=== PATIENT | male | born 1975 | race Caucasian/White ===

== ENCOUNTER → 2016-04-20 | Outpatient (CLI) | payer BC ==
--- NOTE | 2016-04-20 17:28 | XR ---
EXAMINATION TYPE: XR chest 2V DATE OF EXAM: 04/20/2016 5:20 PM COMPARISON: NONE HISTORY: COPD and short of breath TECHNIQUE: Frontal and lateral views of the chest are obtained. FINDINGS: Heart and mediastinum are normal. Lungs are clear. Diaphragm is normal. Bony thorax is int act. IMPRESSION: Normal chest
== END | disposition home or self-care (01) ==
LOC: RADXRMAIN 16:58
PROVIDERS: ATTEND Physical Medicine & Rehabilitation
DX: M54.2 Cervicalgia (principal); R20.2 Paresthesia of skin
CPT/HCPCS: 71020

== ENCOUNTER 2017-03-05 22:41 | Inpatient (IN) | payer BC ==
[2017-03-05] MEDS ORDERED: HYDROmorphone 0.5 MG/0.5 ML SYRINGE IVP STA (23:00)
[2017-03-05] MEDS ORDERED: LORazepam 2 MG/ML INJ IV STA (23:00)
--- NOTE | 2017-03-05 23:04 | ED ---
General Adult HPI - General Chief complaint: Skin/Abscess/Foreign Body Stated complaint: Left foot pain Time Seen by Provider: 03/05/17 22:45 Source: patient, RN notes reviewed Mode of arrival: ambulatory Limitations: no limitations - History of Present Illness Initial comments: This is a 41-year-old male who presents emergency Department complaining of pain in his left foot over the first MTP joint. Patient states she had a bunion removed there by Dr. Tillman and a week ago he followed up with him and Dr. Tillman thought the area looked infected. Patient's been on Bactrim. Patient states since then the area is gotten more tender and he believes it is looking worse. Patient denies any fever. Patient denies any erythema on the foot was riding of the erythema up the foot. Patient denies any area of fluctuance. Patient denies hitting or having any other problems. - Related Data Home Medications Medication Instructions Recorded Confirmed HYDROcodone/APAP 5-325MG [[place] 1 tab PO Q4-6H PRN 03/05/17 03/05/17 5-325] Omeprazole [PriLOSEC] 20 mg PO AC-BID 03/05/17 03/05/17 Sulfamethox-Tmp 800-160Mg [Bactrim 1 tab PO Q12HR 03/05/17 03/05/17 DS 800-160 mg] Allergies Allergy/AdvReac Type Severity Reaction Status Date / Time aspirin Allergy Unknown Verified 03/05/17 23:01 Penicillins Allergy Rash/Hives Verified 03/05/17 23:01 Poultry Allergy Rash/Hives Verified 03/05/17 23:01 Review of Systems ROS Statement: Those systems with pertinent positive or pertinent negative responses have been documented in the HPI. ROS Other: All systems not noted in ROS Statement are negative. 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 Patient is nontoxic and well- hydrated and is in no acute distress. ENT: Neck is soft and supple. No significant lymphadenopathy is noted. Oropharynx is clear. Moist mucous membranes. Neck has full range of motion without eliciting any pain. EYES: The sclera were anicteric and conjunctiva were pink and moist. Extraocular movements were intact and pupils were equal round and reactive to light. Eyelids were unremarkable. PULMONARY: Unlabored respirations. Good breath sounds bilaterally. No audible rales rhonchi or wheezing was noted. CARDIOVASCULAR: There is a regular rate and rhythm without any murmurs gallops or rubs. ABDOMEN: Soft and nontender with normal bowel sounds. No palpable organomegaly was noted. There is no palpable pulsatile mass. SKIN: Skin is clear with no lesions or rashes and otherwise unremarkable. NEUROLOGIC: Patient is alert and oriented x3. Cranial nerves II through XII are grossly intact. Motor and sensory are also intact. Normal speech, volume and content. Symmetrical smile. MUSCULOSKELETAL: Normal extremities with adequate strength and full range of motion. No lower extremity swelling or edema. No calf tenderness. Patient has an incision at the left MTP joint and appears mildly erythematous there is no erythema beyond a centimeter from the incision there is no area of fluctuance. Patient has 2 other incisions one on his leg and one on the top of his foot neither of those areas appear to be erythematous or show any signs of infection. LYMPHATICS: No significant lymphadenopathy is noted PSYCHIATRIC: Normal psychiatric evaluation. Normal interpersonal interactions appears functionally intact in deals appropriately with others. No signs of depression. No signs of anxiety. Limitations: no limitations Course Vital Signs 03/05/17 22:43 Temperature 97.8 F Pulse Rate 98 Respiratory 18 Rate Blood Pressure 131/82 O2 Sat by Pulse 97 Oximetry Medical Decision Making - Medical Decision Making Patient did not have a white count however his lactic acid was 3.7 he was experiencing more pain and he believes that the foot was looking worse. I spoke with Karla Hall for Dr. Tillman and she agreed to admit the patient to see the patient in the morning. EKG shows normal sinus rhythm at 84 bpm AK interval is 144 QRS is 82 QT interval 374 QTC is 441. Patient's EKG shows no ST segment elevation or depression or T wave abnormalities are noted. - Lab Data Result diagrams: 03/05/17 23:22 03/05/17 23:22 Lab Results 03/05/17 03/05/17 03/05/17 Range/Units 23:22 23:22 23:22 WBC 6.3 (3.8-10.6) k/uL RBC 4.81 (4.30-5.90) m/uL Hgb 14.6 (13.0-17.5) gm/dL Hct 43.0 (39.0-53.0) % MCV 89.4 (80.0-100.0) fL MCH 30.3 (25.0-35.0) pg MCHC 33.9 (31.0-37.0) g/dL RDW 13.7 (11.5-15.5) % Plt Count 295 (150-450) k/uL Neutrophils % 43 % Lymphocytes % 44 % Monocytes % 6 % Eosinophils % 3 % Basophils % 1 % Neutrophils # 2.7 (1.3-7.7) k/uL Lymphocytes # 2.8 (1.0-4.8) k/uL Monocytes # 0.4 (0-1.0) k/uL Eosinophils # 0.2 (0-0.7) k/uL Basophils # 0.0 (0-0.2) k/uL Sodium 140 (137-145) mmol/L Potassium 4.0 (3.5-5.1) mmol/L Chloride 101 (98-107) mmol/L Carbon Dioxide 23 (22-30) mmol/L Anion Gap 16 mmol/L BUN 17 (9-20) mg/dL Creatinine 1.40 H (0.66-1.25) mg/dL Est GFR (MDRD) Af Amer >60 (>60 ml/min/1.73 sqM) Est GFR (MDRD) Non-Af 56 (>60 ml/min/1.73 sqM) Glucose 129 H (74-99) mg/dL Plasma Lactic Acid Keven 3.7 H* (0.7-2.0) mmol/L Calcium 10.1 (8.4-10.2) mg/dL Total Bilirubin 0.3 (0.2-1.3) mg/dL AST 24 (17-59) U/L ALT 43 (21-72) U/L Alkaline Phosphatase 79 (38-126) U/L Total Protein 7.9 (6.3-8.2) g/dL Albumin 4.7 (3.5-5.0) g/dL Urine Color Urine Appearance (Clear) Urine pH (5.0-8.0) Ur Specific [place] (1.001-1.035) Urine Protein (Negative) Urine Glucose (UA) (Negative) Urine Ketones (Negative) Urine Blood (Negative) Urine Nitrite (Negative) Urine Bilirubin (Negative) Urine Urobilinogen (<2.0) mg/dL Ur Leukocyte Esterase (Negative) Urine RBC (0-5) /hpf Urine WBC (0-5) /hpf Ur Squamous Epith Cells (0-4) /hpf Urine Mucus (None) /hpf 03/05/17 Range/Units 23:22 WBC (3.8-10.6) k/uL RBC (4.30-5.90) m/uL Hgb (13.0-17.5) gm/dL Hct (39.0-53.0) % MCV (80.0-100.0) fL MCH (25.0-35.0) pg MCHC (31.0-37.0) g/dL RDW (11.5-15.5) % Plt Count (150-450) k/uL Neutrophils % % Lymphocytes % % Monocytes % % Eosinophils % % Basophils % % Neutrophils # (1.3-7.7) k/uL Lymphocytes # (1.0-4.8) k/uL Monocytes # (0-1.0) k/uL Eosinophils # (0-0.7) k/uL Basophils # (0-0.2) k/uL Sodium (137-145) mmol/L Potassium (3.5-5.1) mmol/L Chloride (98-107) mmol/L Carbon Dioxide (22-30) mmol/L Anion Gap mmol/L BUN (9-20) mg/dL Creatinine (0.66-1.25) mg/dL Est GFR (MDRD) Af Amer (>60 ml/min/1.73 sqM) Est GFR (MDRD) Non-Af (>60 ml/min/1.73 sqM) Glucose (74-99) mg/dL Plasma Lactic Acid Keven (0.7-2.0) mmol/L Calcium (8.4-10.2) mg/dL Total Bilirubin (0.2-1.3) mg/dL AST (17-59) U/L ALT (21-72) U/L Alkaline Phosphatase (38-126) U/L Total Protein (6.3-8.2) g/dL Albumin (3.5-5.0) g/dL Urine Color Yellow Urine Appearance Clear (Clear) Urine pH 5.5 (5.0-8.0) Ur Specific [place] 1.034 (1.001-1.035) Urine Protein 1+ H (Negative) Urine Glucose (UA) Negative (Negative) Urine Ketones Negative (Negative) Urine Blood Negative (Negative) Urine Nitrite Negative (Negative) Urine Bilirubin Negative (Negative) Urine Urobilinogen 2.0 (<2.0) mg/dL Ur Leukocyte Esterase Negative (Negative) Urine RBC 2 (0-5) /hpf Urine WBC 2 (0-5) /hpf Ur Squamous Epith Cells <1 (0-4) /hpf Urine Mucus Rare H (None) /hpf Disposition Clinical Impression: Postoperative infection Disposition: ADMITTED IP TO THIS HOSP Referrals: Leno Watkins MD [Primary Care Provider] - 1-2 days Time of Disposition: 00:15
[2017-03-05] MEDS: SODIUM CHLORIDE 0.9% 500 ML IV SCH (23:21)
[2017-03-05 23:37] LABS: Appearance,Urine Clear (Clear); Basophils % (A) 1 %; Bilirubin,Urine Negative (Negative); Blood,Urine Negative (Negative); Color,Urine Yellow; Eosinophils # (A) 0.2 k/uL (0-0.7); Eosinophils % (A) 3 %; Glucose,Urine (UA) Negative (Negative); HGB 14.6 gm/dL (13.0-17.5); Ketones,Urine Negative (Negative); Leukocyte Esterase,Urine Negative (Negative); Lymphocytes # (A) 2.8 k/uL (1.0-4.8); Lymphocytes % (A) 44 %; MCH 30.3 pg (25.0-35.0); MCHC 33.9 g/dL (31.0-37.0); MCV 89.4 fL (80.0-100.0); Monocytes # (A) 0.4 k/uL (0-1.0); Monocytes % (A) 6 %; Mucus,Urine Rare /hpf; Neutrophils # (A) 2.7 k/uL (1.3-7.7); Neutrophils % (A) 43 %; Nitrite,Urine Negative (Negative); PH, Urine 5.5 (5.0-8.0); Platelet Count 295 k/uL (150-450); Protein,Urine 1+ (Negative); RBC 4.81 m/uL (4.30-5.90); RBC,Urine 2 /hpf (0-5); RDW 13.7 % (11.5-15.5); Specific Gravity,Urine 1.034 (1.001-1.035); Squamous Epithelial Cell,Urine <1 /hpf (0-4); WBC 6.3 k/uL (3.8-10.6); WBC,Urine 2 /hpf (0-5)
[2017-03-05 23:45] LABS: ALT 43 U/L (21-72); AST 24 U/L (17-59); Albumin 4.7 g/dL (3.5-5.0); Alkaline Phosphatase 79 U/L (38-126); Anion Gap 16 mmol/L; Blood Urea Nitrogen 17 mg/dL (9-20); Calcium 10.1 mg/dL (8.4-10.2); Carbon Dioxide 23 mmol/L (22-30); Chloride 101 mmol/L (98-107); Glucose 129 mg/dL (74-99); Sodium 140 mmol/L (137-145); Total Bilirubin 0.3 mg/dL (0.2-1.3); Total Protein 7.9 g/dL (6.3-8.2)
--- NOTE | 2017-03-05 23:56 | XR ---
EXAMINATION TYPE: XR foot complete LT DATE OF EXAM: 03/05/2017 COMPARISON: NONE HISTORY: Foot abscess TECHNIQUE: 3 views FINDINGS: There are multiple screws fixing the first tarsometatarsal joint. There is a screw fixing t he first and second cuneiform joint. There is a screw fixing the proximal first and second metatarsal s. I see no fracture nor dislocation. There is no evidence of focal bone destruction. There is appare nt small osteotomy on the first metatarsal head. IMPRESSION: Previous surgery. No evidence of osteomyelitis. No fracture.
[2017-03-06] MEDS ORDERED: SODIUM CHLORIDE 0.9% 1,000 ML IV ONE ×2 (00:13→00:16)
[2017-03-06] MEDS ORDERED: ONDANSETRON 4 MG/2 ML VIAL IVP PRN (00:17)
[2017-03-06] MEDS: ceFAZolin 1,000 MG in DEXTROSE/WATER 1 50ML.BAG IVPB SCH ×4 (00:46→18:24)
[2017-03-06 01:44] VITALS: BMI 21.6
[2017-03-06] MEDS: SODIUM CHLORIDE 0.9% 500 ML IV SCH (02:00)
[2017-03-06] MEDS: LORazepam 2 MG/ML INJ IV PRN ×2 (03:32→12:19)
[2017-03-06] MEDS: HYDROmorphone 0.5 MG/0.5 ML SYRINGE IVP PRN ×2 (09:05→21:18)
--- NOTE | 2017-03-06 12:26 | P.HPOR ---
History of Present Illness H&P Date: 03/06/17 Chief Complaint: Severe right foot pain This is a 41-year-old male admitted through the emergency department early this morning with severe left foot pain. 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 Tillman in January 2017. He was doing fairly well up until about a week ago when he noticed some increased pain to the left foot. He was seen in the office on Wednesday and his incisional area was slightly erythematous. The lower leg was covered in to her and dog hair at the time. He was placed on an antibiotic empirically. He presented to the emergency room yesterday with increased pain and significant anxiety. The patient states that he does drink regularly and has not had alcohol in about 10 days. He was extremely agitated and anxious. He is admitted for IV antibiotics and further evaluation. The patient's lactic acid in the emergency department was 3.6. 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, left bunionectomy with screws and lengthen muscle jan 2017 Past Anesthesia/Blood Transfusion Reactions: No Reported Reaction Past Psychological History: Anxiety Smoking Status: Never smoker Past Alcohol Use History: Occasional Past Drug Use History: None Reported - Past Family History Father Family Medical History: Pneumonia Medications and Allergies Home Medications Medication Instructions Recorded Confirmed Type HYDROcodone/APAP 5-325MG [[place] 1 tab PO Q4-6H PRN 03/05/17 03/05/17 History 5-325] Omeprazole [PriLOSEC] 20 mg PO AC-BID 03/05/17 03/05/17 History Sulfamethox-Tmp 800-160Mg [Bactrim 1 tab PO Q12HR 03/05/17 03/05/17 History DS 800-160 mg] SILVER sulfADIAZINE CREAM 1 applic TOPICAL BID 03/06/17 03/06/17 History [Silvadene Cream] Allergies Allergy/AdvReac Type Severity Reaction Status Date / Time aspirin Allergy Unknown Verified 03/06/17 01:17 Penicillins Allergy Rash/Hives Verified 03/06/17 01:17 Poultry Allergy Rash/Hives Verified 03/06/17 01:17 Physical Examination This is a 41-year-old male in no acute distress. He is a bit less agitated this morning. He is alert and oriented 3. Exam of the lower extremities reveals minimal erythema and swelling about the foot. There is some skin desquamation noted to the entire foot. His incisions are fairly well-healed. There is no calf swelling or tenderness noted. He has full ankle and knee motion without difficulty or pain. Neurovascular status to the lower extremity is intact. Results X-rays of the left foot show good position and alignment of hardware in the midfoot. No bony abnormality is noted. - Labs Labs: Abnormal Lab Results - Last 24 Hours (Table) 03/05/17 03/05/17 03/05/17 Range/Units 23:22 23:22 23:22 Creatinine 1.40 H (0.66-1.25) mg/dL Glucose 129 H (74-99) mg/dL Plasma Lactic Acid Keven 3.7 H* (0.7-2.0) mmol/L Urine Protein 1+ H (Negative) Urine Mucus Rare H (None) /hpf H & H 03/05/17 Range/Units 23:22 Hgb 14.6 (13.0-17.5) gm/dL Hct 43.0 (39.0-53.0) % Result Diagrams: 03/05/17 23:22 03/05/17 23:22 Assessment and Plan (1) Elevated lactic acid level Current Visit: Yes Status: Acute Code(s): R79.89 - OTHER SPECIFIED ABNORMAL FINDINGS OF BLOOD CHEMISTRY SNOMED Code(s): 6167011 (2) Status post foot surgery Current Visit: Yes Status: Acute Code(s): Z98.890 - OTHER SPECIFIED POSTPROCEDURAL STATES SNOMED Code(s): 865248798 Plan: The clinical and x-ray findings are discussed the patient. We will keep him on antibiotics for now. I do not suspect significant infection to the foot at this time. His white blood cell count is normal. The lactic acid level when repeated after bolus of fluids is 1.1. Patient is much more relaxed today with the Ativan. We have consulted medical management to evaluate for any possible medical issues related to the elevated lactic acid. I will plan discharged to home tomorrow if patient is stable.
--- NOTE | 2017-03-06 18:44 | XR ---
EXAMINATION TYPE: XR chest 1V portable DATE OF EXAM: 03/06/2017 Comparison: 08/04/2016 Clinical History: 41-year-old male with shortness of breath, evaluate for pneumonia Findings: The cardiomediastinal silhouette, aorta, and pulmonary vasculature are within normal limits. Lungs and pleural spaces are clear. Impression: No acute cardiopulmonary process.
--- NOTE | 2017-03-06 18:58 | CONS ---
CONSULTATION REASON FOR CONSULTATION: Advice regarding ETOH and possible DTs. HISTORY OF PRESENT ILLNESS: This 41-year-old gentleman with a past medical history of multiple medical problems including asthma, CPAP, DJD being followed by Dr. Watkins in the outpatient setting underwent left foot surgery with a bunion removal by Dr. Tillman I would week ago. The patient is complaining of left foot pain as well as not feeling well. The patient apparently was admitted and started on IV antibiotics. The area was covered with dog hair, according to the notes. There is no history of any fever, rigors. There is no history of headache, loss of consciousness. Patient apparently did not drink for the last 10 days. Patient extremely anxious at this time. No agitation is noted. No history of chest pain, palpitation at this time. PAST MEDICAL HISTORY: History of asthma, sleep apnea, DJD, anxiety. MEDICATIONS PRIOR TO ADMISSION: Include: 1.topically b.i.d. 2. [place] 5 mg p.r.n. 3. Bactrim DS 1 p.o. b.i.d. 4. Prilosec 20 mg daily. ALLERGIES: Are ASPIRIN, PENICILLIN, POULTRY. FAMILY HISTORY: History of pneumonia. SOCIAL HISTORY: History of alcohol. No history of smoking. REVIEW OF SYSTEMS: ENT: No diminished hearing, diminished vision. CARDIOVASCULAR: No angina, palpitations. RESPIRATORY: No cough or hemoptysis. GI: As mentioned earlier. : No dysuria. NERVOUS: No numbness or weakness. ALLERGY/IMMUNOLOGY: No asthma or hay fever. MUSCULOSKELETAL: As mentioned earlier. HEMATOLOGY/ONCOLOGY: No history of anemia. ENDOCRINE: No history of diabetes, hypothyroidism. CONSTITUTIONAL: As mentioned earlier. DERMATOLOGY: Negative. RHEUMATOLOGY: Negative. PSYCHIATRY: As mentioned earlier. PHYSICAL EXAMINATION: The patient alert and oriented x3. Pulse is 80, blood pressure 112/71, respirations 16, temperature 98.1, pulse ox 98% on room air. HEENT: Conjunctivae normal. Oral mucosa moist. NECK: No jugular venous distention. No thyroid enlargement. No carotid bruits. CARDIOVASCULAR: S1, S2 muffled. No S3. No S4. RESPIRATORY: Breath sounds diminished in the bases. A few scattered rhonchi. No crackles. ABDOMEN: Soft, nontender. LEGS: Status post surgery on the left foot. NERVOUS SYSTEM: Higher functions as mentioned earlier. Moves all 4 limbs. No focal deficits. LYMPHATIC: No lymphadenopathy in neck or axillae. SKIN: No ulcer, rash or bleeding. LABS: CBC within normal limits. Creatinine is 1.40. Plasma lactate 3.7. ASSESSMENT: 1. Possible dehydration, mild acute renal failure, prerenal acute tubular necrosis, present on admission because of possible diminished p.o. intake. 2. Increased plasma lactic acid, possibly secondary to dehydration. 3. Rule out cellulitis. 4. Rule out delirium tremens. 5. History of EtOH. 6. History of recent bunion surgery on the left foot. 7. History of sleep apnea. 8. History of asthma. RECOMMENDATIONS AND DISCUSSION: In this 41-year-old gentleman who presented with multiple complex medical issues , will monitor the patient closely, continue the current medical management and symptomatic treatment. I recommend continuing with current medications, follow cultures, IV antibiotics. I would also recommend IV fluids, multivitamin supplements, CIWA protocol for alcohol and DT precautions. DVT prophylaxis. We will follow the patient closely with you and Thank you, Dr. Tillman for letting us participate in the care of this patient. MMODL / IJN: [id number] / MTDDemond
[2017-03-06 19:11] LABS: ALT 34 U/L (21-72); AST 20 U/L (17-59); Albumin 3.8 g/dL (3.5-5.0); Alkaline Phosphatase 63 U/L (38-126); Anion Gap 8 mmol/L; Blood Urea Nitrogen 17 mg/dL (9-20); Calcium 9.7 mg/dL (8.4-10.2); Carbon Dioxide 25 mmol/L (22-30); Chloride 106 mmol/L (98-107); Glucose 107 mg/dL (74-99); Potassium 4.6 mmol/L (3.5-5.1); Sodium 139 mmol/L (137-145); Total Bilirubin 0.3 mg/dL (0.2-1.3); Total Protein 6.3 g/dL (6.3-8.2)
[2017-03-06] MEDS: FOLIC ACID 1 MG TAB PO SCH (21:18)
[2017-03-06] MEDS: PANTOPRAZOLE 40 MG TABLET PO SCH (21:18)
[2017-03-06] MEDS: SODIUM CHLORIDE 0.9% 1,000 ML IV SCH (21:19)
[2017-03-06] MEDS: MULTIVITAMINS, THERA 1 EACH TAB PO SCH (21:19)
[2017-03-06] MEDS: THIAMINE 100 MG TAB PO SCH (21:19)
[2017-03-06] MEDS: HEPARIN SODIUM,PORCINE 5,000 UNIT/ML 1 ML VIAL SQ SCH (21:21)
[2017-03-06] MEDS: cloNIDine HCL 0.1 MG TAB PO SCH (21:23)
[2017-03-07] MEDS: ceFAZolin 1,000 MG in DEXTROSE/WATER 1 50ML.BAG IVPB SCH ×5 (00:48→23:39)
[2017-03-07 01:23] VITALS: RESP 16
[2017-03-07] MEDS: SODIUM CHLORIDE 0.9% 1,000 ML IV SCH ×2 (06:11→20:14)
[2017-03-07 07:31] LABS: Basophils % (A) 1 %; Eosinophils # (A) 0.1 k/uL (0-0.7); Eosinophils % (A) 4 %; HCT 39.5 % (39.0-53.0); HGB 13.6 gm/dL (13.0-17.5); Lymphocytes # (A) 1.2 k/uL (1.0-4.8); Lymphocytes % (A) 36 %; MCH 30.5 pg (25.0-35.0); MCHC 34.4 g/dL (31.0-37.0); MCV 88.8 fL (80.0-100.0); Mean Platelet Volume 7.6; Monocytes # (A) 0.2 k/uL (0-1.0); Monocytes % (A) 7 %; Neutrophils # (A) 1.7 k/uL (1.3-7.7); Neutrophils % (A) 51 %; Platelet Count 223 k/uL (150-450); RBC 4.45 m/uL (4.30-5.90); WBC 3.3 k/uL (3.8-10.6)
[2017-03-07] MEDS: PANTOPRAZOLE 40 MG TABLET PO SCH (08:28)
[2017-03-07] MEDS: HEPARIN SODIUM,PORCINE 5,000 UNIT/ML 1 ML VIAL SQ SCH ×2 (08:29→20:06)
[2017-03-07] MEDS: HYDROmorphone 0.5 MG/0.5 ML SYRINGE IVP PRN ×3 (08:29→20:14)
[2017-03-07] MEDS: cloNIDine HCL 0.1 MG TAB PO SCH ×2 (08:30→20:14)
--- NOTE | 2017-03-07 10:59 | P.PN ---
Subjective Progress Note Date: 03/07/17 Principal diagnosis: Status post Modified Lapidus procedure with gastroc recession left foot. Cellulitis left foot. This is a 41-year-old male admitted with increased redness and swelling to his left foot. He is status post modified Lapidus procedure with gastroc recession of the left foot in January 2017. His pain is improved today. He has no new complaints or concerns today. Objective - Vital Signs Vital signs: Vital Signs Temp 97.4 F L 03/07/17 07:00 Pulse 95 03/07/17 07:00 Resp 16 03/07/17 07:00 BP 107/67 03/07/17 07:00 Pulse Ox 100 03/07/17 07:00 Intake & Output 03/06/17 03/07/17 03/07/17 18:59 06:59 18:59 Intake Total 1020 1075 Output Total 1925 550 Balance -905 525 Weight 58.967 kg Intake: IV 600 725 Sodium Chloride 0.9% 1, 600 675 000 ml @ 75 mls/hr IV . [id number] ONE Rx#:[id number] ceFAZolin 1,000 mg In 50 Dextrose/Water 1 50ml.bag @ 100 mls/hr IVPB Q6HR RODNEY Rx#:[id number] Oral 420 350 Output: Urine 1925 550 Other: Voiding Method Toilet Toilet Toilet # Voids 1 - Exam This is a pleasant 41-year-old male in no acute distress. He is alert and oriented 3. Exam of the left lower extremity reveals that his swelling and erythema are improved. He continues to have desquamation of the skin about the great toe. There are no open wounds noted. Neurovascular status to the lower extremity is intact. - Labs CBC & Chem 7: 03/07/17 06:57 03/06/17 18:34 Labs: Abnormal Lab Results - Last 24 Hours (Table) 03/06/17 03/07/17 Range/Units 18:34 06:57 WBC 3.3 L (3.8-10.6) k/uL Creatinine 1.37 H (0.66-1.25) mg/dL Glucose 107 H (74-99) mg/dL Microbiology - Last 24 Hours (Table) 03/05/17 23:22 Blood Culture - Final Blood 03/05/17 23:22 Urine Culture - Preliminary Urine,Voided Assessment and Plan (1) Elevated lactic acid level Current Visit: Yes Status: Acute Code(s): R79.89 - OTHER SPECIFIED ABNORMAL FINDINGS OF BLOOD CHEMISTRY SNOMED Code(s): 6269989 (2) Status post foot surgery Current Visit: Yes Status: Acute Code(s): Z98.890 - OTHER SPECIFIED POSTPROCEDURAL STATES SNOMED Code(s): 592494326 Plan: The clinical and x-ray findings are discussed the patient. His dressing is changed today and Silvadene cream applied. We will keep him on antibiotics for now. I do not suspect significant infection to the foot at this time. His white blood cell count is normal. The lactic acid level when repeated after bolus of fluids is 1.1. Patient is much more relaxed today with the Ativan. I will plan discharged to home tomorrow if patient is stable.
[2017-03-07] MEDS: MULTIVITAMINS, THERA 1 EACH TAB PO SCH (12:20)
[2017-03-07] MEDS: THIAMINE 100 MG TAB PO SCH (12:20)
[2017-03-07] MEDS: FOLIC ACID 1 MG TAB PO SCH (12:21)
[2017-03-07] MEDS: LORazepam 2 MG/ML INJ IV PRN (21:14)
[2017-03-08] MEDS: ceFAZolin 1,000 MG in DEXTROSE/WATER 1 50ML.BAG IVPB SCH ×2 (05:25→13:21)
[2017-03-08] MEDS: HYDROmorphone 0.5 MG/0.5 ML SYRINGE IVP PRN ×2 (05:27→08:53)
[2017-03-08] MEDS: PANTOPRAZOLE 40 MG TABLET PO SCH (08:53)
[2017-03-08] MEDS: cloNIDine HCL 0.1 MG TAB PO SCH (08:53)
[2017-03-08] MEDS ORDERED: HYDROcodone/APAP 7.5-325MG 1 EACH TAB PO PRN ×2 (09:24)
[2017-03-08] MEDS: HEPARIN SODIUM,PORCINE 5,000 UNIT/ML 1 ML VIAL SQ SCH (09:52)
[2017-03-08] MEDS: LORazepam 2 MG/ML INJ IV PRN (09:57)
[2017-03-08] MEDS: THIAMINE 100 MG TAB PO SCH (12:37)
[2017-03-08] MEDS: MULTIVITAMINS, THERA 1 EACH TAB PO SCH (12:37)
[2017-03-08] MEDS: SODIUM CHLORIDE 0.9% 1,000 ML IV SCH (12:37)
[2017-03-08] MEDS: FOLIC ACID 1 MG TAB PO SCH (12:37)
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
--- NOTE | 2017-03-08 15:02 | P.PN ---
Subjective Progress Note Date: 03/08/17 Principal diagnosis: Left foot cellulitis/infection, s/p modified lapidus procedure Patient is a 41-year-old male seen at bedside this am. He was admitted with increased redness and swelling to his left foot. He is status post modified Lapidus procedure with gastroc recession of the left foot in January [address] Tillman. He has been on IV antibiotics, He states that his pain is slightly improved today. He has no new complaints. He denies numbness, tingling , fever, chills, chest pain, SOB or calf pain. Objective - Vital Signs Vital signs: Vital Signs Temp 97.7 F 03/08/17 08:29 Pulse 82 03/08/17 08:52 Resp 16 03/08/17 08:29 BP 117/77 03/08/17 08:52 Pulse Ox 96 03/08/17 08:29 Intake & Output 03/07/17 03/08/17 03/08/17 18:59 06:59 18:59 Intake Total 925 600 Output Total 1850 Balance -925 600 Intake: IV 600 Sodium Chloride 0.9% 1, 600 000 ml @ 75 mls/hr IV . [id number] [facility] Rx#:[id number] Intake, IV Titration 925 Amount Sodium Chloride 0.9% 1, 825 000 ml @ 75 mls/hr IV . [id number] [facility] Rx#:[id number] ceFAZolin 1,000 mg In 100 Dextrose/Water 1 50ml.bag @ 100 mls/hr IVPB Q6HR [facility] Rx#:[id number] Output: Urine 1850 Other: Voiding Method Toilet Toilet Toilet Urinal # Voids 2 - Exam Exam of the left lower extremity reveals mild swelling and erythema at the great toe and distal foot. He continues to have desquamation of the skin about the great toe. There is areas of break down at the flexor creases of the great toe and 2nd toe. there is no fluid collection or fluctuance. There is no active bleeding or drainage. Neurovascular status to the lower extremity is intact. Calf is soft and nontender. - Constitutional General appearance: Present: no acute distress - Psychiatric Psychiatric: Present: A&O x's 3, appropriate affect, intact judgment & insight - Labs CBC & Chem 7: 03/07/17 06:57 01/20/18 18:34 Labs: Microbiology - Last 24 Hours (Table) 03/05/17 23:18 Blood Culture Gram Stain - Preliminary Blood Blood Culture - Preliminary Bacillus species Not Anthracis 03/06/17 22:54 Blood Culture - Preliminary Blood No Growth after 24 hours 03/06/17 22:35 Blood Culture - Preliminary Blood No Growth after 24 hours 03/05/17 23:22 Urine Culture - Final Urine,Voided Assessment and Plan (1) Postoperative infection Narrative/Plan: He will continue with wound care, elevation, pain management and IV antibiotics. There doesn't appear to be an area that requires surgical intervention. We will request consult from infectious disease for their recommendations. We will continue to monitor and make further recommendations as appropriate Current Visit: Yes Status: Acute Priority: Medium Code(s): T81.4XXA - INFECTION FOLLOWING A PROCEDURE, INITIAL ENCOUNTER SNOMED Code(s): 32526293 Time with Patient: Less than 30
[2017-03-08 15:06] VITALS: BP 99/63; PULSE 73; TEMP 98
--- NOTE | 2017-03-08 16:33 | PN ---
PROGRESS NOTE DATE OF SERVICE: 03/07/2017 This 41-year-old gentleman admitted with dehydration, renal failure and as well as infection, cellulitis, being closely monitored. The patient probably has ETOH withdrawal also. No chest pain. No palpitations. No fever. EXAM: Alert and oriented x3. The pulse is 100, blood pressure 130/72, respiration 20, temperature 97.1, pulse ox 98% on room air. HEENT: Conjunctivae normal. NECK: No jugular venous distention. CARDIOVASCULAR: S1, S2. RESPIRATORY: Breath sounds diminished in the bases. No rhonchi, no crackles. ABDOMEN: Soft, nontender. LEGS: No edema, no swelling. Cellulitis noted. NERVOUS SYSTEM: No focal deficits. LABS: WBC is 3.3. Creatinine is 1.37. ASSESSMENT: 1. Possible dehydration with mild acute renal failure with acute tubular necrosis, present on admission because of possible diminished p.o. intake and prerenal factors. 2. Increased plasma lactic acid, possibly secondary dehydration. 3. Possible EtOH withdrawal and early delirium tremens. 4. Cellulitis of the legs. 5. History of recent bunion surgery on the left foot. 6. Sleep apnea. 7. History of asthma. DISCUSSION AND RECOMMENDATIONS: I recommend to continue current management and symptomatic treatment. Will monitor the patient closely and continue with antibiotics. Continue with IV fluids. I would also recommend repeat labs also. MMODL / IJN: [id number] /
--- NOTE | 2017-03-08 16:39 | PN ---
PROGRESS NOTE DATE OF SERVICE: 03/08/2017. INTERVAL HISTORY: This 41-year-old gentleman admitted with cellulitis and renal failure is being closely monitored. No chest pain. No palpitations. No fever. EXAM: Alert and oriented x3. The pulse is 84, blood pressure 100/60, respirations 16, temperature 97.2, pulse ox 98% on room air. HEENT: Conjunctivae normal. Neck: No jugular venous distention. Cardiovascular: S1, S2. Respirations: Breath sounds diminished in the bases. No rhonchi. No crackles. Abdomen is soft, nontender. Legs: Cellulitis in the left foot. Central nervous system: No focal deficits. LAB STUDIES: At this time shows WBC 3.6, creatinine is noted. ASSESSMENT: 1. Possible dehydration with mild acute renal failure with prerenal acute tubular necrosis, present on admission because of diminished p.o. intake. 2. Increased plasma lactic acidosis secondary to dehydration. 3. Early alcohol withdrawal and delirium tremens. 4. Cellulitis. 5. Recent bunion surgery on the left foot. 6. Sleep apnea. 7. Asthma. RECOMMENDATIONS AND DISCUSSION: Recommend to continue current medications, management and symptomatic treatment. Otherwise, I would recommend repeat labs with the primary physician and also continue with Ativan p.r.n. Further recommendation to follow. MMODL / IJN: [id number] /
--- NOTE | 2017-03-08 18:52 | P.CON ---
Consult Note - . Consult date: 03/08/17 Assessment/Plan:: This is a 41-year-old male who underwent bunionectomy in January with Dr. Tillman. He had an appointment last Wednesday for which he was started on Bactrim. Patient states he has had increased tenderness in pains and the right foot at the area of surgery. He denies having any fever or chills. He came into [facility] emergency center for evaluation and was found to be afebrile with no leukocytosis. Creatinine was 1.37. Lactic acid initially 3.7 and repeat 1.1. Urinalysis was negative for urinary tract infection. Blood culture on March 05 is showing bacillus species not anthrax this and a gram-positive bacilli and a second specimen. Repeat blood cultures on March 06 are showing no growth at 24 hours and that is of 2 specimens. Patient has been on Kefzol. Patient is expecting to be discharged home today. He states his foot is still sore. No open drainage. He is eating okay with no change in his appetite.Please see the consult as dictated by DINING SERVER Mitchell Lorraine Harris. At this time this pleasant 41-year-old gentleman. The significant surgery and developed the difficulty with the cellulitis. The patient has pictures on his film show evidence of the redness that was present that is now generally resolved. Also has pictures of his x-rays show his hardware. He has very little understanding of his surgery., He is educated on the tendon lengthening to try to take weight off of the great toe so that the repair of that significant abnormality would last many years given his age of only 41. Seems to have some understanding. There is no evidence of any deep infection. Oral antimicrobial therapy will be utilized for home. Offloading as per the orthopedic surgeon. He has no evidence of sepsis. He is concerned about pain control with surgeon has offered him oral pain medication at discharge. The patient is evidence of the need for a multivitamin and he suggested take this. Patient also has a mildly elevated creatinine and it does appear he was taking anti-inflammatories at home. He is instructed not to take anti- inflammatories such as ibuprofen, Motrin, Advil or Aleve. He may take Tylenol and his [place] watching the total Tylenol dosage per day. We'll need to follow with his primary care physician regarding his elevated creatinine. I agree with evaluation assessment and plan as dictated by DINING SERVER Lorraine Kimberly.
--- NOTE | 2017-04-08 09:25 | P.DS ---
Providers Date of admission: 03/06/17 00:16 Expected date of discharge: 04/08/17 Attending physician: Fortunato Tillman Consults: 03/06/17 03:22 Consult Physician Routine Consulting Provider: Oumou Nj Consult Reason/Comments: medical managment Do you want consulting provider notified?: Yes, Notify in am 03/08/17 11:34 Consult Physician Routine Consulting Provider: Darrel Guzman Consult Reason/Comments: foot infection Do you want consulting provider notified?: Yes Primary care physician: Leno Watkins - Discharge Diagnosis(es) (1) Postoperative infection Patient is a 41-year-old male that was admitted with increased redness and swelling to his left foot. He is status post modified Lapidus procedure with gastroc recession of the left foot in January [address] Tillman. During his hospital course he received IV antibiotics, pain management and wound care. He did not require surgical intervention and his course was without complication. On day of discharge his pain and exam are improved. He has been cleared by infectious disease. He has no new complaints. He denies numbness, tingling, fever, chills, chest pain, SOB or calf pain or other. Status: Acute Priority: Medium Patient Condition at Discharge: Good Plan - Discharge Summary Discharge Rx Participant: Yes New Discharge Prescriptions: New Cefadroxil [Duricef] 500 mg PO Q12HR #20 tab HYDROcodone/APAP 7.5-325MG [[place] 7.5-325] 1 - 2 tab PO Q4-6H PRN #90 tab PRN Reason: Pain LORazepam [Ativan] 1 mg PO TID PRN #30 tab PRN Reason: Anxiety Discontinued HYDROcodone/APAP 5-325MG [[place] 5-325] 1 tab PO Q4-6H PRN PRN Reason: Pain No Action Sulfamethox-Tmp 800-160Mg [Bactrim DS 800-160 mg] 1 tab PO Q12HR Omeprazole [PriLOSEC] 20 mg PO AC-BID SILVER sulfADIAZINE CREAM [Silvadene Cream] 1 applic TOPICAL BID Discharge Medication List Omeprazole [PriLOSEC] 20 mg PO AC-BID 03/05/17 [History] Sulfamethox-Tmp 800-160Mg [Bactrim DS 800-160 mg] 1 tab PO Q12HR 03/05/17 [ History] SILVER sulfADIAZINE CREAM [Silvadene Cream] 1 applic TOPICAL BID 03/06/17 [ History] Cefadroxil [Duricef] 500 mg PO Q12HR #20 tab 03/07/17 [Rx] HYDROcodone/APAP 7.5-325MG [[place] 7.5-325] 1 - 2 tab PO Q4-6H PRN #90 tab [Rx] LORazepam [Ativan] 1 mg PO TID PRN #30 tab 03/08/17 [Rx] Follow up Appointment(s)/Referral(s): Leno Watkins MD [Primary Care Provider] - 1-2 days [facility], [NON-STAFF] - As Needed Fortunato Tillman MD [Medical Doctor] - 1 Week Ambulatory/Diagnostic Orders: Complete Blood Count w/diff [LAB.AMB] Location: Determined By Patient Patient Instructions/Handouts: Surgical Site Infections (DC) Activity/Diet/Wound Care/Special Instructions: Change dressing with Silvadene cream daily left foot. May use home antifungal cream between the toes left foot as needed. Continue nonweightbearing to the left lower extremity with crutches. Discharge Disposition: HOME WITH HOME HEALTH SERVICES
== END 2017-03-08 18:10 | disposition home health service (06) | DRG 862 ==
LOC: EC 22:41 → 3SUR 03-06 00:16
PROVIDERS: ADMIT Orthopaedic Surgery; ATTEND Orthopaedic Surgery
DX: T81.4XXA Infection following a procedure, initial encounter (principal); N17.0 Acute kidney failure with tubular necrosis; F10.231 Alcohol dependence with withdrawal delirium; E87.2 Acidosis; L03.116 Cellulitis of left lower limb; E86.0 Dehydration; G47.30 Sleep apnea, unspecified; J45.909 Unspecified asthma, uncomplicated; Z79.899 Other long term (current) drug therapy; Z88.6 Allergy status to analgesic agent; Z88.0 Allergy status to penicillin; Z91.018 Allergy to other foods
CPT/HCPCS: 36415; 71045; 80053; 81001; 83605; 85025; 87040; 87086; 93005; 96365; 96375; 99284; 99285

== ENCOUNTER → 2024-02-02 | Outpatient (CLI) | payer OTHER ==
[2024-02-02 15:54] VITALS: BP 126/80; PULSE 68; RESP 16; TEMP 98.1
--- NOTE | 2024-02-02 16:19 | P.SLEEP ---
History of Present Illness DATE: 02/02/2024 CONSULTATION/NEW PATIENT EVALUATION HISTORY OF PRESENT ILLNESS/SLEEP-WAKE EVALUATION: 48-year-old gentleman had been evaluated in the sleep center for possible obstructive sleep apnea hypopnea syndrome. SLEEP SCHEDULE: Usually sleep schedule from 10 PM to 7 AM on weekdays and from 11 PM to 8 AM on weekend. FALLING ASLEEP: Patient does have problems with falling asleep. DURING SLEEP: Patient snores and wakes up from sleep multiple times with 3 episodes of nocturia. Positive history of grinding teeth no history of hypnogogical hallucinations, sleep paralysis, or cataplexy. DURING THE DAY/WAKE STATE: During the day patient has difficulties to concentrate, episodes of anxiety. [place] sleepiness scale is 5. Usually patient does not take naps. PAST MEDICAL HISTORY: Anxiety, allergy, acid reflux. PAST SURGICAL HISTORY: Right shoulder surgery. MEDICATIONS: Please see below. SOCIAL HISTORY: Please see below. FAMILY HISTORY: Please see below. REVIEW OF SYSTEMS: Snoring, multiple awakenings from sleep. No fevers. No double vision. No recent chest pain. No shortness of breath. No abdominal pain. No bleeding episodes. No blood in urine. No seizure episodes. PHYSICAL EXAMINATION: GENERAL: A pleasant patient without any distress. VITAL SIGNS: Please see below, weight 144 pounds, BMI 24.7. HEENT: PERRLA, EOMI. Evaluation of oropharynx showed tongue protrudes midline, low position of soft palate Mallampati 4, retrognathia 1 to 2 mm. NECK: Supple. No JVD. Thyroid is not palpable. 15 inches in circumference. LUNGS: Clear to percussion and to auscultation. Good air exchange. No wheezing or rhonchi. HEART: S1, S2 regular. No murmurs, gallops or rubs. ABDOMEN: Soft and nontender. Bowel sounds are present. No organomegaly appreciated. EXTREMITIES: No clubbing or cyanosis. CLEANING VALIDATION CONSULTANT: Awake, alert, and oriented x3. Cranial nerves 2 to 7 intact. There is no fasciculation or atrophy noted. No focal deficits observed. ASSESSMENT: 1. Snoring, multiple awakenings from sleep, extremely low position of soft palate Mallampati 4, retrognathia 1 to 2 mm, history of obstructive sleep apnea in the past. Obstructive sleep apnea hypopnea syndrome. 2. Acid reflux. 3. Anxiety. 4. Allergy. 5 status post right shoulder surgery. PLAN: 1. Polysomnography for evaluation of patient's breathing during sleep. 2. Plan after reading sleep study. 3. Preferable position during sleep on the side. 4. No driving if patient feels any sleepiness. Patient is aware of civil and criminal liability for unsafe driving. 5. Sleep hygiene with regular sleep time for at least 7.5-8 hours. 6. Watching weight. Thank you very much for referring this patient for consultation. Sincerely, Jimbo Gutierrez MD, PhD, FAASM. 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 He drinks alcohol occasionally according to him. He works in a factory driving a forklift. He lives at home with his and there are 3 dogs in the home. Past Drug Use History: None Reported - Past Family History Father Family Medical History: GERD/Reflux, Pneumonia Additional Family Medical History / Comment(s): Emphysema, lung problems Medications and Allergies Home Medications Medication Instructions Recorded Confirmed Type Omeprazole [PriLOSEC] 20 mg PO AC-BID 03/05/17 03/05/17 History Sulfamethox-Tmp 800-160Mg [Bactrim 1 tab PO Q12HR 03/05/17 03/05/17 History DS 800-160 mg] SILVER sulfADIAZINE CREAM 1 applic TOPICAL BID 03/06/17 03/06/17 History [Silvadene Cream] HYDROcodone/APAP 7.5-325MG [Forrest 1 - 2 tab PO Q4-6H PRN #90 tab 03/07/17 Rx 7.5-325] cefaDROXiL [Duricef] 500 mg PO Q12HR #20 tab 03/07/17 Rx LORazepam [Ativan] 1 mg PO TID PRN #30 tab 03/08/17 Rx Allergies Allergy/AdvReac Type Severity Reaction Status Date / Time aspirin Allergy Unknown Verified 03/06/17 01:17 Penicillins Allergy Rash/Hives Verified 03/06/17 01:17 Poultry Allergy Rash/Hives Verified 03/06/17 01:17 Physical Exam Vitals: Vital Signs Temp Pulse Resp BP Pulse Ox 02/02/24 15:53 98.1 F 68 16 126/80 96 Intake and Output 02/02/24 02/02/24 02/02/24 06:59 14:59 22:59 Other: Weight 65.317 kg Sleep Note - Sleep Data ESS Total: 5 - Sleep Note Sleep Note: Temperature: 98.1 F Pulse Rate: 68 Respiratory Rate: 16 Blood Pressure: 126/80 SpO2: 96 Height: 5 ft 4 in Weight: 65.317 kg BMI: Neck Circumference: 15
== END ==
LOC: 3 N SLEEP 15:00
PROVIDERS: ATTEND Internal Medicine
DX: G47.33 Obstructive sleep apnea (adult) (pediatric) (principal); K21.9 Gastro-esophageal reflux disease without esophagitis; F41.9 Anxiety disorder, unspecified; Z98.890 Other specified postprocedural states; Z88.0 Allergy status to penicillin; Z88.6 Allergy status to analgesic agent; Z91.09 Other allergy status, other than to drugs and biological substances
CPT/HCPCS: 99202